=== PATIENT | male | born 1970 | race Caucasian/White ===

== ENCOUNTER 2024-03-19 07:19 | Day surgery (SDC) | payer OTHER, SELFPAY ==
[2024-03-19] VITALS (15 sets, daily range): BP systolic 82–123; BP diastolic 49–65; BMI 24.0
[2024-03-19] MEDS: LOW STRENGTH ASPIRIN 324 MG PO (07:55)
--- NOTE | 2024-03-19 09:05 | ITS.CL.CATH ---
[facility] - Catheterization
Cardiac Catheterization
Procedure Report:
CARDIAC CATHETERIZATION REPORT
Date of Procedure: 03/19/2024
Referring: John Crockett MD
Indication: Abnormal stress test with multiple CAD risk factors
HEMODYNAMIC DATA
AO: 117/59
LV: 117/12
LEFT VENTRICULOGRAPHY: Overall preserved left ventricular systolic function with EF 54%
CORONARY ANGIOGRAPHY
Dominance: Right
Left Main: Normal
LAD: Normal
Circumflex: Normal
RCA: Normal
Closure Device: None-the procedure was performed via the right radial artery. The Chaz's test was normal prior to the procedure.
Radiation (mGy): 118
DAP (cm2.Gy): 12.7
Fluoroscopy time: 1.6 minutes
CONCLUSIONS
1: Normal left ventricular function with EF 54%
2: Normal coronary arteries
Copy to: John Crockett MD, Erik Scott MD
Maximiliano Hernandez MD, [facility], [facility]
== END 2024-03-19 11:56 | disposition home or self-care (01) ==
LOC: CATH 07:19
PROVIDERS: ATTENDING PHYSICIAN Internal Medicine Cardiovascular Disease; FAMILY PHYSICIAN Internal Medicine
DX: R07.89 Other chest pain (principal); R94.39 Abnormal result of other cardiovascular function study; Z87.891 Personal history of nicotine dependence; R94.31 Abnormal electrocardiogram [ECG] [EKG]
CPT/HCPCS: 93005; 93458; C1894; Q9967